=== PATIENT | male | born 1995 | race African-American/Black ===

== ENCOUNTER 2019-01-09 17:22 | Emergency (ER) | payer SELFPAY ==
[~2019-01-09] VITALS: Ht 193 cm; Wt 93.2 kg
[~2019-01-09 17:22] MED LIST: ADVIL200 MG PO; NORCO 325 MG-7.1 TAB PO; OXY IR5 MG PO; ULTRAM 50MG TAB50 MG PO; ZYRTEC 10MG10 MG PO
[2019-01-09 17:25] VITALS: TEMP 98
[2019-01-09] MEDS ORDERED: CRUTCHES MC ×2 (18:13→18:18)
[2019-01-09 18:38] VITALS: BP 117/68; PULSE 64
== END 2019-01-09 18:38 | disposition home or self-care (01) ==
LOC: COL.ER 17:22
DX: S92.354A Nondisplaced fracture of fifth metatarsal bone, right foot, initial encounter for closed fracture (principal); X50.1XXA Overexertion from prolonged static or awkward postures, initial encounter; Y93.67 Activity, basketball